=== PATIENT | male | born 1985 | race African-American/Black ===

== ENCOUNTER 2020-06-15 12:04 | Emergency (ER) | payer OTHER ==
--- NOTE | 2020-06-15 14:17 | RAD REPORT ---
EXAM DESCRIPTION: RAD - Hand Right 3 View - 06/15/2020 2:07 pm CLINICAL HISTORY: PAIN COMPARISON: No comparisons FINDINGS: Moderate soft tissue swelling is seen along the dorsum of the hand. Oblique fracture is se en along the base of the third metacarpal.
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
[2020-06-15 14:48] VITALS: BP 148/77; TEMP 97.8; O2SAT 99
== END 2020-06-15 14:44 | disposition home or self-care (01) ==
LOC: ER 12:04
PROC: 2W3CX1Z Immobilization of Right Lower Arm using Splint (ICD-10-PCS; principal; 2020-06-15)
DX: S62.312A Displaced fracture of base of third metacarpal bone, right hand, initial encounter for closed fracture (principal); Y04.2XXA Assault by strike against or bumped into by another person, initial encounter; Y93.9 Activity, unspecified; Y92.149 Unspecified place in prison as the place of occurrence of the external cause
CPT/HCPCS: 99283